=== PATIENT | female | born 2000 | race Caucasian/White ===

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

== ENCOUNTER 2021-05-16 13:29 | Emergency (ER) | payer OTHER, SELFPAY ==
[2021-05-16 13:38] VITALS: BP 127/80; PULSE 115; RESP 16; TEMP 37.2; O2SAT 100
--- NOTE | 2021-05-16 14:26 | ED.URI ---
HPI - URI/Sore Throat General Chief Complaint: Upper Respiratory Infection Stated Complaint: cough head congestion History of Present Illness HPI Narrative: This is a 20-year-old that presents to the urgent care complaining of a cough, sore throat, congestion patient states that the symptoms started Saturday. Patient states that she is unvaccinated and she is feeling very well she has not checked her temperature although she has felt warm. Related Data Allergies Allergy/AdvReac Type Severity Reaction Status Date / Time No Known Allergies Allergy Verified 05/16/21 14:23 Review of Systems Review of Systems: cough, congestion, tired and sinus pressure All systems reviewed & are unremarkable except as noted in HPI and below PMFSH Comments At time as signature, I have reviewed and agree with nursing past medical, social, surgical and family history. Please see nursing chart for further information. There is no relevant family history pertinent to the presenting complaint. Exam Narrative: GENERAL: Ill-appearing, well-nourished, and in no acute distress. HEAD:Normocephalic EYES: PERRLA ENT: Nares copious secretions, moderate clear rhinorrhea . Mucous membranes moist. Pharyngeal erythema throat fiery red CHEST: Clear to auscultation. No respiratory distress. HEART: Regular rate and rhythm. ABDOMEN: Soft, . EXTREMITIES: Normal range of motion. No edema. SKIN: Warm, dry, no rash. NEURO: No focal deficits. Alert and oriented x3. Course Course Emergency Course: Negative strep, negative influenza, positive Covid Vital Signs Vital signs: Vital Signs Temperature 99.0 F 05/16/21 13:38 Pulse Rate 115 H 05/16/21 13:38 Respiratory Rate 16 05/16/21 13:38 Blood Pressure 127/80 05/16/21 13:38 Pulse Oximetry 100 05/16/21 13:38 Temperature 99.0 F 05/16/21 13:38 Pulse Rate 115 H 05/16/21 13:38 Respiratory Rate 16 05/16/21 13:38 Blood Pressure 127/80 05/16/21 13:38 Pulse Oximetry 100 05/16/21 13:38 MDM - URI/Sore Throat Differential Diagnosis Differential diagnosis: Likely upper respiratory infection, croup, otitis media, sinusitis, viral infection, bronchitis, influenza, pharyngitis and other (Covid) Lab Data Labs: Lab Results 12/07/21 Range/Units 14:19 POC SARS CoV-2 Ag Positive (Negative) Influenza A Screen Negative Reference Range: Negative Influenza B Screen Negative Reference Range: Negative Strep Screen Presumptive Negative *(Reference Range: Negative)* Discharge Plan Discharge Clinical Impression: COVID-19 Pharyngitis Qualifiers: Pharyngitis/tonsillitis etiology: unspecified etiology Qualified Code(s): J02.9 - Acute pharyngitis, unspecified Acute tonsillitis Qualifiers: Pharyngitis/tonsillitis etiology: unspecified etiology Qualified Code(s): J03.90 - Acute tonsillitis, unspecified Patient Disposition: Home, Self-Care Condition: Stable Instructions: Antibiotic Form, How To Wash Your Hands (ED), COVID-19 (Coronavirus Disease 2019) (ED), Face Coverings (Masks) and COVID-19 (ED) Additional Instructions: Viral illness may last between 7-12days; antibiotic is NOT recommended at this time. Recommend antihistamine such as Benadryl at night time and Claritin/Zyrtec/Patt during the day Also, recommend symptomatic treatment includes: rest, fluids, and increase humidity of the air at home. Recommend Acetaminophen or nonsteroidal anti-inflammatory agents (NSAIDs) as directed in the bottle to reduce fever and/pain/headache. Avoid smoking/second-hand smoke. Limit visits to areas with large crowds. Please schedule a follow-up visit with your personal physician for further evaluation and treatment within 3-5days. Including recheck and discussion of your blood pressure. If your symptoms persi
== END 2021-05-16 15:03 | disposition home or self-care (01) ==
PROVIDERS: Emergency Provider Nurse Practitioner Family; PCP Pediatrics
DX: U07.1 COVID-19 (principal)
CPT/HCPCS: 87081; 87426; 87804; 87880; 99213; C9803; G0463

== ENCOUNTER 2022-05-23 12:39 | Emergency (ER) | payer OTHER, SELFPAY ==
[2022-05-23 13:03] VITALS: BP 120/74; PULSE 116; RESP 16; TEMP 37.1; O2SAT 100
--- NOTE | 2022-05-23 14:59 | ED.URI ---
HPI - URI/Sore Throat General Chief Complaint: Upper Respiratory Infection Stated Complaint: Congestion/Cough Time Seen by Provider: 05/23/22 14:59 Source: patient and RN notes reviewed Mode of arrival: ambulatory Limitations: no limitations History of Present Illness HPI Narrative: 21 year old female presented for c/o Headache, body aches, sinus pressure/congestion, cough, fever/chills.She onset 3 days. She denies shortness of breath, wheezing, nausea, vomiting, diarrhea. She is taking Sudafed for symptoms. Endorses sick contacts. MD elicited complaint: cough Related Data Home Medications Medication Instructions Recorded Confirmed No Home Medications 05/23/22 05/23/22 Allergies Allergy/AdvReac Type Severity Reaction Status Date / Time No Known Allergies Allergy Verified 05/23/22 14:34 Review of Systems Review of Systems: ROS per HPI Exam Narrative: GENERAL: Ill-appearing, nontoxic EYES: PERRLA, conjunctivae clear ENT: Mucous membranes moist. TM pearly meyers with dull light reflex bilaterally; no tragal tenderness. Oropharynx erythematous CHEST: Clear to auscultation, breath sounds equal. HEART: Regular rate and rhythm. No murmur heard. SKIN: Warm, dry, no rash. NEURO: Alert and oriented x3. PSYCH: Normal mood and affect Course Course Emergency Course: Patient is aware of diagnosis, understands and agrees to treatment plan. Anticipatory guidance given. Patient agrees to follow-up as directed and is aware of reasons to seek care at the emergency department. Portions of this record may have been created with voice recognition software Level of Care: Express Care Visit Vital Signs Vital signs: Vital Signs Temperature 98.7 F 05/23/22 13:03 Pulse Rate 116 H 05/23/22 13:03 Respiratory Rate 16 05/23/22 13:03 Blood Pressure 120/74 05/23/22 13:03 Pulse Oximetry 100 05/23/22 13:03 Oxygen Delivery Room Air 05/23/22 13:03 Temperature 98.7 F 05/23/22 13:03 Pulse Rate 116 H 05/23/22 13:03 Respiratory Rate 16 05/23/22 13:03 Blood Pressure 120/74 05/23/22 13:03 Pulse Oximetry 100 05/23/22 13:03 Oxygen Delivery Room Air 05/23/22 13:03 reviewed MDM - URI/Sore Throat MDM Narrative Medical decision making narrative: Due to lack of resources, unable to test for influenza at this time. Patient verbalizes understanding. Advised supportive measures and signs and symptoms to go to the ER. Patient is appropriate for outpatient treatment and follow-up. Differential Diagnosis Differential diagnosis: Likely upper respiratory infection, sinusitis and viral infection Discharge Plan Discharge Clinical Impression: Viral infection Patient Disposition: Home, Self-Care Condition: Stable Instructions: Antibiotic Form, Influenza (ED) Additional Instructions: You should avoid crowds until you are fever free for 24 hours without the use of fever reducing medications, or the symptoms are improved Rest. Drink plenty of fluids. Tylenol every 8 hours as needed for pain/fever Recommend Zyrtec (or Claritin/Patt) for sinus pressure/congestion over the counter Cough syrup may cause drowsiness; avoid driving or take it at night time. Follow up with your primary care provider as needed in 1-2 weeks Go to the ER for worsening symptoms or concerns Prescriptions: No Action No Home Medications Follow-up/Referrals: William,Harvey Childs MD [Primary Care Provider] - Stand Alone Forms: Work/School Release IP Time of Disposition: 15:14
== END 2022-05-23 15:15 | disposition home or self-care (01) ==
PROVIDERS: Emergency Provider Nurse Practitioner Family; PCP Pediatrics
DX: B34.9 Viral infection, unspecified (principal)
CPT/HCPCS: 99211; G0463

== ENCOUNTER 2025-05-31 13:52 | Emergency (ER) | payer OTHER, SELFPAY ==
--- NOTE | 2025-05-31 14:02 | ED_ITS ---
HPI - URI/Sore Throat General Chief Complaint: Upper Respiratory Infection Stated Complaint: Cough/Nasal Congestion/Fever Time Seen by Provider: 05/31/25 13:54 Source: patient Mode of arrival: ambulatory Limitations: no limitations History of Present Illness HPI Narrative: Catherine is a 24-year-old female patient presenting to the clinic today with complaints of cough, nasal congestion, body aches, and fever x3 days. She reports she test herself on Saturday and was negative for COVID and flu. States her symptoms are getting worse. Denies any chest pain or shortness of breath. Cough is nonproductive. Has not taken any medications for her symptoms. Related Data Home Medications ?Medication ?Instructions ?Recorded ?Confirmed ?Last Taken ?Type No Home Medications 05/23/22 05/23/22 U nknown History Allergies Allergy/AdvReac Type Severity Reaction Status Date / Time No Known Allergies Allergy Verified 05/23/22 14:34 Review of Systems Review of Systems: Pertinent positives per HPI. Patient denies any rash, headache, visual changes, dizziness, shortness of breath, chest pain, palpitations, nausea, vomiting, diarrhea, constipation, abdominal pain, or any urinary issues. PMFSH Comments At the time of my signature, I reviewed and agree with the nursing past medical, surgical, social, and family history. There is no relevant family history pertinent to the patient complaint. Exam Narrative: General: Well-developed, well nourished, in no apparent distress Head: Normocephalic, atraumatic Eyes: Pupils equally round and reactive to light bilaterally, EOM intact, sclera and conjunctive clear, no discharge, lids normal Ears: TMs intact and clear, ear canals clear, no drainage, grossly hearing normal. Nose: Nares patent, no discharge, no inflammation, no sinus tenderness. Mouth: Oral pharynx without lesions or masses, good dentition, MMM. Neck: Supple, trachea midline, no enlargement of anterior or posterior cervical nodes, no thyroid masses or goiter palpable. Cardio: Regular rate and rhythm, s1 and s2 normal, no murmur appreciated. Resp: Clear to auscultation bilaterally, no rhonchi, rales, wheezing or rubs Course Course Level of Care: Express Care Visit Vital Signs Vital signs: Vital Signs Temperature 37.7 C H 05/31/25 14:04 Pulse Rate 135 H 05/31/25 14:04 Respiratory Rate 16 05/31/25 14:04 Blood Pressure 135/68 05/31/25 14:04 Pulse Oximetry 100 05/31/25 14:04 Oxygen Delivery Room Air 05/31/25 14:04 Temperature 37.7 C H 05/31/25 14:04 Pulse Rate 135 H 05/31/25 14:04 Respiratory Rate 16 05/31/25 14:04 Blood Pressure 135/68 05/31/25 14:04 Pulse Oximetry 100 05/31/25 14:04 Oxygen Delivery Room Air 05/31/25 14:04 MDM MDM Narrative Medical decision making narrative: At the time of visit patient is resting comfortably on the exam table. Patient appears to be nontoxic. Complaints of cough, nasal congestion, body aches, and fever x3 days. She reports she test herself on Saturday and was negative for COVID and flu. States her symptoms are getting worse. Denies any chest pain or shortness of breath. Cough is nonproductive. Has not taken any medications for her symptoms. On exam patient has bilateral TMs intact and clear, clear nasal drainage, no anterior turbinate inflammation, no sinus tenderness, oral pharynx normal, tachycardic heart rate but regular rate and rhythm, lung sounds are clear. COVID and influenza testing was ordered. Labs: COVID testing is negative. Influenza A test is positive Plan: Patient has influenza A. Work note was given. Supportive measures were discussed with the patient and they voiced understanding discharge instructions and agrees to treatment plan. Return precautions reviewed Differential Diagnosis Differential Diagnosis: Differential diagnostic considerations for upper respiratory infection include upper respiratory infection, croup, otitis media, sinusitis, viral infection, bronchitis, influenza, pharyngitis, strep, uvulitis. Discharge Plan Discharge Clinical Impression: Influenza A Patient Disposition: Home Condition: Stable Instructions: Antibiotic Form, Influenza (ED) Additional Instructions: Influenza A testing is positive in the clinic today. COVID testing was negative. May take DayQuil/NyQuil for cold/flu symptoms. Increase fluids and stay well hydrated May take Tylenol or motrin as directed on bottle for pain/fever May use Flonase 1 spray in each nare daily May take OTC antihistamines such as Zyrtec or Claritin daily as directed on bottle May apply Vicks vapor rub to chest to open sinuses Sinus rinses for congestion Cepacol spray, cough drops, throat lozenges, warm tea with honey/lemon, gargle salt water to soothe throat BRAT diet for diarrhea Clear liquids x 24 hours then advance as tolerated for nausea/vomiting Go to the ED if you develop a worsening in your condition- high fever not controlled by Tylenol or Motrin, dehydration, weakness, lethargy, shortness of breath, or chest pain. Follow up with your PCP in 3-5 days if symptoms persist. Patient Language: Faroese Prescriptions: No Action No Home Medications Follow-up/Referrals: Ritesh,Imani Day APN [Primary Care Provider, Unknown] Stand Alone Forms: Work/School Release IP Time of Disposition: 14:25 Quality NIHSS Nursing Documentation ED NIHSS nursing documentation: reviewed/agree
[2025-05-31 14:04] VITALS: BP 135/68; PULSE 135; RESP 16; TEMP 37.7; O2SAT 100
[2025-05-31 14:35] LABS: EDCOVIDSCREEN Negative (Negative); EDINFLUASCREEN Positive (Negative); EDINFLUBSCREEN Negative (Negative)
--- OUTSIDE RECORDS SUMMARY | 2025-05-31 15:41 | XMS_ITS | Clinical Summary ---
Author Organization [facility] Address [address] [place] [address] Phone Care Team Providers Care Mortgage Loan Assistant Name Role Phone Noel Thomas MD Primary Care Provider Allergies No known active allergies Medications Norgestimate-Eth Estradiol (ESTARYLLA PO) Take by mouth daily. Active Social History Tobacco Use Types Packs/Day Years Used Date Smoking Tobacco: Never Smokeless Tobacco: Never Alcohol Use Standard Drinks/Week Comments Never 0 (1 standard drink = 0.6 oz pur e alcohol) AUDIT-C Answer Date Recorded Q1: How often do you have a drink containing alc ohol? Never 08/11/2019 Average Number of Drinks Not on file 020 Frequency of Binge Drinking Not on file 08/2019 Comments Unknown Sex and Gender Information Value Date Recorded Sex Assigned at Not on file Legal Sex Female 11:54 PM CDT Gender Identity Not on file Sexual Orientation Not on file Last Filed Vital Signs Vital Sign Reading Time Taken Comments Blood Pressure 103/83 05/01/2024 10:23 AM HEALTHCARE REPRESENTATIVE Pulse 97 05/01/2024 10:23 AM HEALTHCARE REPRESENTATIVE Temperature 36.6 C (97.9 F) 08/11/2019 10:18 PM HEALTHCARE REPRESENTATIVE Respiratory Rate 16 08/11/2019 11:23 PM HEALTHCARE REPRESENTATIVE Oxygen Saturation 99% 08/11/2019 11:23 PM HEALTHCARE REPRESENTATIVE Inhaled Oxygen Concentration - - Weight 77.1 kg (170 lb) 05/01/2024 9:56 AM HEALTHCARE REPRESENTATIVE Height 175.3 cm (5' 9) 05/01/2024 9:56 AM HEALTHCARE REPRESENTATIVE Body Mass Index 25.1 05/01/2024 9:56 AM HEALTHCARE REPRESENTATIVE Plan of Treatment Health Maintenance Due Date Last Done Comments Hepatitis C Virus (HCV) Screening 2001 Meningococcal B Immunization (2 of 2 - Bexsero SCDM 2-dose series) 11/27/2018 05/29/2018 Pap Smear 2022 Influenza Immunization (#1) 02/08/202503/11, 05/29/2018, 07/23/2013, Additional history exists SARS-COV-2 Immunization ( season) 2025 Respiratory Syncytial Virus (RSV) Immunization (Adult) (1 - 1-dose 75+ series) 2076 Hepatitis B Immunization Completed 002, 2001, 2001 Pneumococcal Immunization Combined Aged Out 02/16/2003, 03/02/2002, 2001 No longer eligible based on patient's age to complete this topic Hepatitis A Immunization Discontinued 03/19/2006, 01/08 Measles Mumps Rubella (MMR) Immunization Discontinued 03/19/2006, 11/13/2002 Varicella Immunization Completed 03/19/2006, 2002 Polio (IPV) Immunization Discontinued 007, 11/13/2002, 03/02/2002, Additional history exists Human Papillomavirus (HPV) Immunization Completed 07/23/2013, 03/30/2013, 01/19/2013 Meningococcal Immunization (ACWY) Completed 06/06/2018, 01/19/2013 DTaP/Tdap/Td Immunization Discontinued 2022, 02/19/2012, 01/21/2007, Additional history exists TdaP Immunization Completed 08/24/2022, 02/19/2012 Rotavirus Immunization Aged Out No lo nger eligible based on patient's age to complete this topic Insurance MEDICAID [employer] [place] Care Teams Mortgage Loan Assistant Relationship Specialty Start Date End Date Noel Thomas MD [address] [place] [address] PCP - General Pediatrics 08/11/19
--- OUTSIDE RECORDS SUMMARY | 2025-05-31 15:41 | XMS_ITS | Clinical Summary ---
Author Organization [facility] [employer] Address [address] [place] [address] Care Team Providers Care Front Line Supervisor Name Role Phone Unavailable Primary Care Provider Unavailabl e Source Comments [facility] [employer],non-owned Affiliates and Associated Physician Practices is amultiple site organization consisting of ambulatory clinics and hospital sitesin [place], [place], [place] and [place]. This disclosure is being madepursuant to the Care Everywhere program and may not contain all information available regarding this patient. Last updated 18.[facility] [employer] Allergies No known active allergies Medications * Be aware that medications may not be up to date on this document. Alwaysverify current medications with the patient. No known medications Social History Tobacco Use Types Packs/Day Years Used Date Smoking Tobacco: Never Assessed Comments No Sex and Gender Information Value Date Recorded Sex Assigned at Not on file Legal Sex Female 6:58 AM [employer] Gender Identity Not on file Sexual Orientation Not on file Last Filed Vital Signs Vital Sign Reading Time Taken Comments Blood Pressure 108/60 12/29/2009 3:25 PM CDT Pulse - - Temperature - - Respiratory Rate - - Oxygen Saturation - - Inhaled Oxygen Concentration - - Weight 31.9 kg (70 lb 4.8 oz) 12/29/2009 3:25 PM CDT Height 139.4 cm (4' 6.88) 12/29/2009 3:25 PM CD T Body Mass Index 16.41 12/29/2009 3:25 PM CDT Plan of Treatment Health Maintenance Due Date Last Done Comments HIV SCREENING 2016 HPV VACCINE (1 - 3-dose series) 2016 CHLAMYDIA/GONORRHEA SCREENING 2017 MENINGOCOCCAL (Group B) VACC INE SHARED DECISION-MAKING (1 of 2 - Standard) 2017 HEPATITIS C SCREENING 10/11/2019 DTAP/TDAP/TD VACCINES (1 - Tdap) 2020 HEPATITIS B VACCINE (1 of 3 - 19+ 3-dose series) 2020 DEPRESSION SCREENING 06/10/2024 COVID-19 VACCINE (1 - 2024-2 6 season) 2025 INFLUENZA VACCINE (#1) 2025 ZOSTER VACCINE (1 of 2) 10/16/2051 HIB VACCINE Aged Out No longer eligi ble based on patient's age to complete this topic MENINGOCOCCAL GROUPS A/C/Y/W VACCINE Aged Out No longer eligible b ased on patient's age to complete this topic PNEUMOCOCCAL VACCINE Aged Out No long er eligible based on patient's age to complete this topic Insurance [facility] MEDICAID - [place] [address]
== END 2025-05-31 14:33 | disposition home or self-care (01) ==
PROVIDERS: Emergency Provider Nurse Practitioner Family; PCP Nurse Practitioner Family
DX: J10.1 Influenza due to other identified influenza virus with other respiratory manifestations (principal); Z20.822 Contact with and (suspected) exposure to COVID-19
CPT/HCPCS: 87426; 87804; 99212; G0463